=== PATIENT | male | born 1955 | race Caucasian/White ===

== ENCOUNTER → 2019-05-26 10:59 | Outpatient (BNVA) | payer MEDICARE, BC, SELFPAY | PROVIDERS: PCP Family Medicine; Referring Provider Family Medicine; Visit Provider Family Medicine | DX: N52.9 Male erectile dysfunction, unspecified (principal); Z86.39 Personal history of other endocrine, nutritional and metabolic disease; Z85.46 Personal history of malignant neoplasm of prostate | CPT/HCPCS: 80053; 80061; 85007; 85027; G0103 ==